=== PATIENT | male | born 1940 ===

== ENCOUNTER 2017-06-20 09:22 | Outpatient (RCR) | payer MEDICARE, MEDICAID | END 2017-06-28 | disposition home or self-care (01) | LOC: PTY 09:22 | DX: G20 Parkinson's disease (principal); R26.9 Unspecified abnormalities of gait and mobility | CPT/HCPCS: 97110; 97162; G8981; G8982 ==

== ENCOUNTER 2017-07-23 09:02 | Outpatient (RCR) | payer MEDICARE, MEDICAID | END 2017-07-28 | disposition home or self-care (01) | LOC: PTY 09:02 | DX: G20 Parkinson's disease (principal); R26.9 Unspecified abnormalities of gait and mobility | CPT/HCPCS: 97110; 97112; G8978; G8979 ==